=== PATIENT | male | born 1995 | race Caucasian/White ===

== ENCOUNTER 2024-11-30 20:12 | Emergency (ER) | payer MEDICARE, OTHER ==
[~2024-11-30] VITALS: Ht 152.4 cm; Wt 49.5 kg
[2024-11-30] MEDS: SODIUM CHLORIDE 0.9% 1,000 ML IV ONE (20:30)
--- NOTE | 2024-11-30 20:43 | ED.PDOC ---
History of Present Illness HPI Comments 29 y/o M is [id number] family for c/o right shoulder pain. Per family, patient has a history of cerebral palsy - contracted and nonverbal at baseline. Patient began endorsing pain after hearing a 'pop' to his right shoulder when attempted to help him stretch-out, this evening. Patient has no additional en dorsed acute symptoms at this time. Chief Complaint: Upper Extremity Time Seen by MD: 20:25 Reviewed Notes: Nurses Notes, Medications, Allergies Allergies: Coded Allergies: NO KNOWN ALLERGIES (Unverified , 11/30/24) Information Source: Relative Mode of Arrival: Wheelchair Severity: Mild Timing: Hours Duration: Since onset Prehospital treatment: None Past Medical History Past Medical History (Other): cerebral palsy - contracted and nonverbal at baseline Surgical History: Denies all surgeries Social History Smoker: Non-Smoker Alcohol: Denies ETOH Use Drugs: Denies Drug Use Lives In: Home, Assisted Care All Other Systems: Reviewed and Negative (Comprehensive systems review obtained and negative except for what is stated in the HPI.) Physical Exam General Appearance: No Apparent Distress, Normal HEENT: Normal ENT Inspection, Pharynx Normal, TMs Normal Neck: Full Range of Motion, Non-Tender, Normal, Normal Inspection Respiratory: Chest Non-Tender, Lungs Clear, No Accessory Muscle Use, No Respiratory Distress, Normal Breath Sounds Cardiovascular: No Edema, No JVD, No Murmur, No Gallop, Normal Peripheral Pulses, Regular Rate/Rhythm Breast Exam: Deferred Gastrointestinal: No Organomegaly, Non Tender, No Pulsatile Mass, Normal Bowel Sounds, Soft Genitalia: Other (chronic indwelling Antonio) Pelvic: Deferred Rectal: Deferred Extremities: No calf tenderness, Normal capillary refill, Normal inspection (contracted at baseline), Normal range of motion, No pedal edema, Tender (right shoulder ), Other Musculoskeletal : Location: Right Extremity Location: Shoulder Apperance: Normal, Tenderness Neurologic: Alert, provider relations rep II-XII nml as Tested, No Motor Deficits, Normal Affect, Normal Mood, No Sensory Deficits, Other (contracted and nonverbal at baseline) Cerebellar Function: Normal Reflexes: Normal Skin: Dry, Normal Color, Warm Lymphatic: No Adenopathy Was a procedure done? Was a procedure done?: No Differential Dx Considerations may include: dislocation, sprain, bruising, contusion, fracture, among others X-Ray, Labs, Meds, VS Vital Signs Date Time Temp Pulse Resp B/P (MAP) Pulse Ox O2 Delivery O2 Flow Rate FiO2 11/30/24 20:12 97.7 108 17 135/98 (110) 9 97.7 Time of 1ST Reevaluation: 20:55 Reevaluation 1ST: Unchanged Patient Education/Counseling: Diagnosis, Treatment, Need For Follow Up Family Education/Counseling: Diagnosis, Treatment, Need For Follow Up Additional Information Previous visits reviewed: N/A The following tests were ordered, and results were reviewed by me: Right shoulder X-ray Additional Information was gathered from interviewing the following independent historians: Family I reviewed and agreed with the following test results read by other providers: Right shoulder X-ray I discussed treatment and results with medical personnel and: Family, patient SEPSIS Sepsis Screen Date sepsis recognized/suspect: Nov 30, 2024 Time Sepsis recognized/suspect: 2014 Recent Procedure: No On Antibiotic Therapy: No Respiratory Rate >20: No Heart Rate >90: Yes (HR 108) Temp<36 C (96.8 F) or >38.3 C: No SBP <90 or MAP <65 mmHG: No New Acute Mental Status Change: No Is the patient on CPAP, BIPAP,: No Physician Orders Sodium Chloride 0.9% (11/30/24 20:30) R Humerus Xray (11/30/24 20:25) Vital Signs Date Time Temp Pulse Resp B/P (MAP) Pulse Ox O2 Delivery O2 Flow Rate FiO2 11/30/24 20:12 97.7 108 17 135/98 (110) 9 97.7 Departure 1 Departure Time of Disposition: 20:56 (Patient was a humerus fracture. Patient has contracted at baseline. We will put patient in a sling and discharge patient home with outpatient orthopedic follow up.) Impression: Primary Impression: Humerus distal fracture Qualified Codes: S42.491A - Other displaced fracture of lower end of right humerus, initial encounter for closed fracture Disposition: HOME / SELF CARE / HOMELESS Condition: Stable Additional Instructions: You have a distal humerus fracture. It is important to follow up with [facility] this week. Please call [phone] to make an appointment. For pain you can take the followinam: Ibuprofen 400mg with food Noon: Acetaminophen 1000mg 4pm: Ibuprofen 400mg with food 8pm: Acetaminophen 1000mg You were prescribed oxycodone for breakthrough pain. Please take as directed. If your symptoms worsen or you have any other concerns then please return to the ER. e-Prescriptions Oxycodone HCl (Oxycodone Hydrochloride) 10 Mg Tab 10 MG PO QID PRN for 5 Days, #20 TAB Prov: MELVIN EDWARDS MD 11/30/24 Discharged With: Self Critical Care Note Critical Care Time?: No Stability Stability form required: No Heart Score Heart Score: Heart Score Response (Comments) Value History N/A 0 EKG N/A 0 Age N/A 0 Risk Factors N/A 0 Troponin N/A 0 Total 0 I personally scribed for MELVIN EDWARDS MD ([email or web address]) on 11/30/24 at 20:43. Electronically submitted by Coleman Green ([email or web address]). MELVIN EDWARDS MD Nov 30, 2024 20:43
[2024-11-30 20:45] VITALS: PULSE 108; RESP 25; O2SAT 94
[2024-11-30] MEDS ORDERED: OXYC-998 PO (20:55)
--- NOTE | 2024-11-30 21:02 | DVH ---
CLINICAL INDICATION: fall TECHNIQUE: 2 radiographic views of the right humerus were obtained. Comparison: None FINDINGS/IMPRESSION: Spiral fracture distal 3rd right humerus with proximally 11-12 mm displacement.. The visualized joint space is well maintained. The alignment is anatomical. There is no radiopaque foreign body.
[2024-11-30] MEDS: MORPHINE SULFATE 4 MG/ML SYR/VIAL IV ONE (21:06)
[2024-11-30] MEDS: ONDANSETRON HCL 4 MG/2 ML VIAL IV ONE (21:06)
[2024-11-30] MEDS: ACETAMINOPHEN 650 mg PER 20.3 mL UD GT ONE (21:27)
[2024-11-30 22:00] VITALS: BP 133/74; PULSE 124; RESP 22; TEMP 98.6; O2SAT 95
== END 2024-11-30 22:02 | disposition home or self-care (01) ==
LOC: EEVIPCON 20:12 → ER 20:12
DX: S42.401A Unspecified fracture of lower end of right humerus, initial encounter for closed fracture (principal); G80.9 Cerebral palsy, unspecified; X50.9XXA Other and unspecified overexertion or strenuous movements or postures, initial encounter; Y93.89 Activity, other specified; Y92.89 Other specified places as the place of occurrence of the external cause; Y99.8 Other external cause status
CPT/HCPCS: 73060; 96361; 96374; 96375; 99285; J2270; J2405; J7030